=== PATIENT | female | born 1945 | race Caucasian/White ===

== ENCOUNTER 2024-02-08 12:25 | Emergency (ER) | payer MEDICARE, OTHER, SELFPAY ==
[2024-02-08 12:33] VITALS: BP 166/105
[2024-02-08 13:00] LABS: % Basophils 0.2 % (0-2); % Eosinophils 0.3 % (0-6); % Immature Granulocytes 0.3 % (0-0.5); % Lymphocytes 26.5 % (20.5-51.1); % Monocytes 4.6 % (1.7-9.3); % Neutrophils 68.1 % (42.2-75.2); Absolute Lymphocytes 2.3 10^3/uL (1.2-3.4); Absolute Monocytes 0.4 10^3/uL (0.1-0.6); Absolute Neutrophils 5.9 10^3/uL (1.4-6.5); Hematocrit 43.3 % (37.0-47.0); Hemoglobin 14.9 g/dL (12.0-16.0); Mean Corp Hgb Conc. 34.4 g/dL (33.0-37.0); Mean Corpuscular Hgb 32.5 pg (27.0-31.0); Mean Corpuscular Volume 94.5 fL (81.0-99.0); Mean Platelet Volume 12.1 fL (7.4-10.4); Nucleated Red Blood Cells % 0 %; Platelet Count 215 10^3/uL (130-400); Red Blood Cell Count 4.58 10^6/uL (4.20-5.40); Red Cell Dist. Width 12.7 % (11.5-14.5); White Blood Cell Count 8.6 10^3/uL (4.8-10.8)
[2024-02-08 13:19] LABS: ALT (SGPT) 19 U/L (0-35); AST (SGOT) 23 U/L (14-36); Albumin 4.8 g/dl (3.5-5.0); Alkaline Phosphatase 67 U/L (38-126); Blood Urea Nitrogen 17 mg/dl (7-17); Calcium 9.7 mg/dl (8.4-10.2); Carbon Dioxide 25 mmol/L (22-30); Chloride 104 mmol/L (98-107); Glucose 181 mg/dl (70-99); Potassium 3.7 mmol/L (3.5-5.1); Sodium 138 mmol/L (135-145); Total Bilirubin 0.5 mg/dl (0.2-1.3); Total Protein 8.3 g/dl (6.3-8.2); eGFR > 60.00
[2024-02-08 13:28] LABS: Troponin I < 0.012 ng/ml
--- NOTE | 2024-02-08 17:29 | ED.GENMED ---
History of Present Illness
General
Chief Complaint: Heart Rate Problem
Source: patient
Exam Limitations: none
Time Seen by Provider: 02/08/24 17:27
Nursing documentation reviewed up to this point in time: agreed with
Travel History
Have you had any contact with someone who has COVID-19?: No
Do you have any symptoms of coronavirus? Fever > 100 degrees, chills, cough, shortness of breath, sore throat, loss of taste or smell, muscle aches, or headache?: No
History of Present Illness
History of Present Illness:
79-year-old female with history of HTN, anxiety states she hasn't felt right for past few days, sinus congestion, headache after hitting right forehead on cabinet door 4 days ago. Around 11 a.m. checked her pulse ox and it was 98-99% RA but she had
'fast heart rate.' She denies feeling palpitations, denies CP, SOB, abd pain. Denies feeling weak or dizzy.
She admits she is extremely anxious, states she worries about everything states she has spoken to her PCP about her anxiety but has never taken anything for it.
Past History
Past History
ED Past Medical History: HTN and Psychiatric (Anxiety/panic disorder)
ED Past Surgical History: Cholecystectomy and Gynecological (Hysterectomy)
Social History
Tobacco: Non-smoker
Alcohol: Occasional
Drug: None
Personal:
Living: with family
Employment: Retired ( cardiology)
Family History
Family History: CAD
Review of Systems
Review of Systems
Allergies reviewed?: Yes
All Other Systems: ROS reviewed and negative except as documented in HPI and ROS
Constitutional: Reports fatigue; Denies fever
EENT: Reports other (Sinus stuffiness); Denies sore throat
Respiratory: Denies cough or trouble breathing
Cardiac: Denies chest pain or palpitations
ABD/GI: Denies abdominal pain, nausea, vomiting, diarrhea, bloody stools, black stools or anorexia
: Denies dysuria, frequency, flank pain or difficulty voiding
Musculoskeletal: Reports no symptoms; Denies edema
Skin: Reports no symptoms
Neurological: Reports headache; Denies dizzy, weakness or numbness
Psychiatric: Reports anxiety (Takes nothing for anxiety but asking if she could have something now for)
Phy Exam
Physical Exam
Physical Exam:
GENERAL: No acute distress. A&Ox3.
CONSTITUTIONAL: Afebrile.
EYES: Clear, conjunctivae normal
ENMT: moist mucus membranes, Pharynx nl
RESPIRATORY: Regular respirations, nonlabored, lungs clear.
CARDIOVASCULAR: Regular rate and rhythm, tachycardic 110-120 on monitor, no murmurs, no rubs.
GI: Soft, nontender, normal BS
MUSCULOSKELETAL: Moves with ease. Well perfused.
SKIN: Warm, dry, pink
PSYCH: Normal mood and affect, admits to feeling anxious. Well kept, interactive and appropriate.
NEUROLOGIC: Awake, alert and oriented. No focal neurological deficits
Course
Orders/Labs/Results
Orders:
Orders
02/08/24 12:27
Electrocardiogram (*1) Urgent
Reason for Study: Tachycardia
EKG- Treatment ONCE
02/08/24 12:43
Complete Blood Count/With Diff Urgent
Comprehensive Metabolic Panel Urgent
Troponin I Urgent
02/08/24 17:39
0.9% Sodium Chloride 1000 ml [Nss] 1,000 ml IV BOLUS
Abnormal Lab Results
02/08/24
12:43
MCH 32.5 H pg
(27.0-31.0)
MPV 12.1 H fL
(7.4-10.4)
Glucose 181 H mg/dl
(70-99)
Total Protein 8.3 H g/dl
(6.3-8.2)
02/08/24 12:43
02/08/24 12:43
Vital Signs
Initial and Last Documented VS:
Initial Vital Signs
Temp Pulse Resp BP Pulse Ox
98.4 F 123 18 166/105 98
02/08/24 12:33 02/08/24 12:33 02/08/24 12:33 02/08/24 12:33 02/08/24 12:33
Last Documented Vital Signs
Temp Pulse Resp BP Pulse Ox
98 F 87 16 128/68 99
02/08/24 19:10 02/08/24 19:10 02/08/24 19:10 02/08/24 19:10 02/08/24 19:10
MDM/Problems Addressed
MDM/Problems Addressed:
79-year-old female with history of HTN, anxiety states she hasn't felt right for past few days, sinus congestion, headache after hitting right forehead on cabinet door 4 days ago. Around 11 a.m. checked her pulse ox and it was 98-99% RA but she had
'fast heart rate.' She denies feeling palpitations, denies CP, SOB, abd pain. Denies feeling weak or dizzy.
She admits she is extremely anxious, states she worries about everything states she has spoken to her PCP about her anxiety but has never taken anything for it.
Initial EKG sinus tachycardia with a rate of 126
Admits to feeling extremely anxious, no one source, worries about everything.
02/08/2024 1900 PM
CBC CMP normal
Troponin
After 1 L of IV fluids, heart rate is in the 80s.
Discussed her anxiety with her, I will give her a low-dose of lorazepam to take as needed twice daily and she needs to follow-up with her PCP to discuss her anxiety and treatment options.
*Critical Care Note
Total Time (30-74mins, 75-104mins- exclusive of procedures): Not Applicable
ED Attending Note
-
Portions of this chart may have been created with voice recognition software.� Occasional wrong word or��sound alike� substitutions may have occurred due to the inherent limitations of voice recognition software.
Discharge Plan
Departure
Patient Disposition: Home (Routine Discharge)
Date of Disposition: 02/08/24
Time of Disposition: 19:09
Patient with high blood pressure during this ER visit?: No
Condition: Good
Discharge Problem:
Tachycardia, Anxiety
Instructions: Tips to Help You Worry Less, Anxiety, Adult ED
Prescriptions:
New
lorazepam 0.5 mg tablet
0.5 mg PO BID PRN (Reason: anxiety) Qty: 10 0RF
No Action
amlodipine-benazepril 5 MG/10 MG capsule
1 cap PO DAILY
ergocalciferol (vitamin D2) 400 UNIT tablet
400 unit PO DAILY
ascorbic acid (vitamin C) [Vitamin C] 500 MG tablet
500 mg PO DAILY
cod liver oil 118 ML oil
1 tsp PO DAILY
ascorbic acid-elderberry fruit 1 EACH tablet,chewable
1 ea PO DAILY
meclizine 25 mg tablet
25 mg PO QID PRN (Reason: dizziness, nausea) Qty: 30 0RF
amlodipine-benazepril [Lotrel] 5-10 mg Capsule
1 cap PO
Referrals:
Brooke Whelan MD [Family Provider] - Next open appointment
Activity Restrictions/Additional Instructions:
As we discussed, I sent a prescription to your pharmacy for lorazepam to take up to twice a day as needed for anxiety. Call your doctor tomorrow and make an appointment for sometime within the next week to discuss your anxiety.
Interventions
Interventions:
*Risk Screen - Suicide Last Done: 02/08/24 12:33
*General Assessment Last Done: 02/08/24 12:33
*Neglect/Abuse Screening Last Done: 02/08/24 12:33
ED- Fall Risk Assessment Last Done: 02/08/24 17:27
*ED COVID-19 Vaccine History Last Done: 02/08/24 12:33
*Nursing Disposition Last Done: 02/08/24 19:10
ED- Cardiac Assessment Last Done: 02/08/24 17:27
ED- Pulmonary Assessment Last Done: 02/08/24 17:27
Discharge Date and Time
Discharge Date/Time: 02/08/24 19:15
[2024-02-08] MEDS: NSS 1000 IV (17:52)
[2024-02-08 17:59] VITALS: BP 134/68
[2024-02-08 19:10] VITALS: BP 128/68
== END 2024-02-08 19:15 | disposition home or self-care (01) ==
LOC: EMR 12:25
PROVIDERS: Emergency Medicine; EMERGENCY PHYSICIAN Emergency Medicine; FAMILY PHYSICIAN Family Medicine
DX: R00.0 Tachycardia, unspecified (principal); F41.9 Anxiety disorder, unspecified; I10 Essential (primary) hypertension; F41.0 Panic disorder [episodic paroxysmal anxiety]; Z82.49 Family history of ischemic heart disease and other diseases of the circulatory system; Z90.49 Acquired absence of other specified parts of digestive tract; Z90.710 Acquired absence of both cervix and uterus
CPT/HCPCS: 99283; 96360; 80053; 84484; 85025; 93005

== ENCOUNTER → 2024-03-24 07:50 | Outpatient (REF) | payer MEDICARE, OTHER, SELFPAY ==
[2024-03-24 09:21] LABS: HDL Cholesterol 60 mg/dl; LDL Cholesterol, Calculated 124 mg/dl; Total Cholesterol 213 mg/dl (50-199); Triglyceride 149 mg/dl (10-149); Very Low Density Lipoprotein 29 mg/dl (0-30)
[2024-03-24 09:31] LABS: Glycohemoglobin (HgbA1c) 5.9 % (4.0-5.6)
== END ==
LOC: REG 07:50
PROVIDERS: ATTENDING PHYSICIAN Family Medicine
DX: E78.00 Pure hypercholesterolemia, unspecified (principal); R73.03 Prediabetes
CPT/HCPCS: 36415; 80061; 83036

== ENCOUNTER 2024-11-02 22:35 | Emergency (ER) | payer MEDICARE, OTHER, SELFPAY ==
[2024-11-02 23:07] LABS: % Basophils 0.3 % (0-2); % Eosinophils 0.7 % (0-6); % Immature Granulocytes 0.4 % (0-0.5); % Lymphocytes 33.2 % (20.5-51.1); % Monocytes 7.3 % (1.7-9.3); % Neutrophils 58.1 % (42.2-75.2); Absolute Eosinophils 0.1 10^3/uL (0-0.7); Absolute Monocytes 0.7 10^3/uL (0.1-0.6); Absolute Neutrophils 5.3 10^3/uL (1.4-6.5); Hematocrit 43.5 % (37.0-47.0); Hemoglobin 14.4 g/dL (12.0-16.0); Mean Corp Hgb Conc. 33.1 g/dL (33.0-37.0); Mean Corpuscular Hgb 32.4 pg (27.0-31.0); Mean Corpuscular Volume 97.8 fL (81.0-99.0); Mean Platelet Volume 11.9 fL (7.4-10.4); Nucleated Red Blood Cells % 0 %; Platelet Count 203 10^3/uL (130-400); Red Blood Cell Count 4.45 10^6/uL (4.20-5.40); Red Cell Dist. Width 12.6 % (11.5-14.5); White Blood Cell Count 9.1 10^3/uL (4.8-10.8)
[2024-11-02 23:32] LABS: Troponin I < 0.012 ng/ml
[2024-11-02 23:42] LABS: ALT (SGPT) 22 U/L (0-35); AST (SGOT) 23 U/L (14-36); Albumin 4.8 g/dl (3.5-5.0); Alkaline Phosphatase 55 U/L (38-126); Blood Urea Nitrogen 18 mg/dl (7-17); Calcium 9.6 mg/dl (8.4-10.2); Carbon Dioxide 29 mmol/L (22-30); Chloride 102 mmol/L (98-107); Glucose 122 mg/dl (70-99); Potassium 3.6 mmol/L (3.5-5.1); Sodium 142 mmol/L (135-145); Total Bilirubin 0.3 mg/dl (0.2-1.3); eGFR > 60.00
[2024-11-03 01:45] VITALS: BP 176/86
[2024-11-03 02:00] VITALS: BP 137/108
[2024-11-03 02:06] VITALS: BMI 28.2
[2024-11-03 02:30] VITALS: BP 148/87
[2024-11-03] MEDS: ATIVAN 0.5 MG PO (02:41)
[2024-11-03 03:00] VITALS: BP 160/91
--- NOTE | 2024-11-03 03:21 | ED.GENMED ---
History of Present Illness
General
Chief Complaint: Heart Rate Problem
Source: patient
Exam Limitations: none
Time Seen by Provider: 11/03/24 02:19
History of Present Illness
History of Present Illness:
This is a 79 year old female that comes in with c/o increased heart rate and anxiety. States that since she had a Concussion she feels that her anxiety has gotten worse. States that today all day she felt like her heart rate was elevated. States
that she checked and it was 102 at 12noon. States that she called the PCP and she then went into there office. Sates that she was given Lexapro and either Xanax or Ativan she is not sure which one. States that she was going to pick this up tomorrow.
States that she was trying to go to sleep and there was music blasting. States that she felt this made her more anxious and her heart rate went up to 117.States that her chest felt hot. States that she did have a headache earlier today. Denies any
fever, chills, chest pain, SOB, abd pain, nausea, vomiting, diarrhea, dizziness, urinary burning.
Past History
Past History
ED Past Medical History: HTN, Psychiatric (Anxiety/panic disorder) and Other (Dizziness, PNA, Concussion, Jag solomon, )
ED Past Surgical History: Cholecystectomy and Gynecological (Hysterectomy)
Social History
Tobacco: Non-smoker
Alcohol: Daily (wine 1 glass)
Drug: None
Personal:
Living: with family
Employment: Retired ( cardiology)
Family History
Family History: CAD
Review of Systems
Review of Systems
All Other Systems: ROS reviewed and negative except as documented in HPI and ROS
Constitutional: Reports no symptoms; Denies fever or chills
EENT: Reports no symptoms
Respiratory: Reports no symptoms; Denies cough or trouble breathing
Cardiac: Reports other (felt like her heart was racing); Denies chest pain
ABD/GI: Reports no symptoms; Denies abdominal pain, nausea, vomiting or diarrhea
: Reports no symptoms
Musculoskeletal: Reports no symptoms
Skin: Reports no symptoms
Neurological: Reports headache; Denies dizzy
Psychiatric: Reports anxiety
Phy Exam
General Physical Exam
General Presentation: no apparent distress
General age: appears stated age
General Skin: warm and dry
General Habitus: elderly
General Mental: alert and anxious
General Hydration: appears well hydrated
ENT Exam
ENT Exam: TM's normal, pharynx normal and neck supple
Eye Exam
Eye Exam: EOMI
Cardiovascular Exam
Cardiovascular Exam: regular rate/rhythm, no edema, no murmur and normal peripheral pulses
Pulmonary Exam
Pulmonary Exam: lungs clear, no respiratory distress, no rales, chest non tender, no crackles, no rhonchi, no wheezing and no cough
Gastrointestinal Exam
Gastrointestinal Exam: normal bowel sounds, non tender, soft, no organomegaly, no pulsatile mass and non distended
Musculoskeletal Exam
Musculoskeletal Exam: full ROM and no edema
Skin Exam
Skin Exam: normal color, warm/dry, no rash and no petechia
Psychiatric Exam
Psychiatric Exam: anxious
Course
Orders/Labs/Results
Orders:
Orders
11/02/24 22:44
EKG [Electrocardiogram (*1)] Urgent
Reason for Study: Tachycardia
EKG- Treatment ONCE
11/02/24 22:57
Complete Blood Count/With Diff Urgent
Comprehensive Metabolic Panel Urgent
Troponin I Urgent
11/03/24 02:34
Lorazepam [Ativan] 0.5 mg PO NOW STA
Abnormal Lab Results
11/02/24
22:57
MCH 32.4 H pg
(27.0-31.0)
MPV 11.9 H fL
(7.4-10.4)
Absolute Monos (auto) 0.7 H 10^3/uL
(0.1-0.6)
BUN 18 H mg/dl
(7-17)
Glucose 122 H mg/dl
(70-99)
11/02/24 22:57
11/02/24 22:57
Very slight Dehydration. Glucose nonfasting. Troponin < 0.012
Vital Signs
Initial and Last Documented VS:
Initial Vital Signs
Temp Pulse Resp Pulse Ox
98.1 F 113 18 96
11/02/24 22:41 11/02/24 22:41 11/02/24 22:41 11/02/24 22:41
Last Documented Vital Signs
Temp Pulse Resp BP Pulse Ox
98.1 F 91 10 160/91 99
11/02/24 22:41 11/03/24 03:00 11/03/24 03:00 11/03/24 03:00 11/03/24 02:45
MDM/Problems Addressed
Differential Diagnosis Includes:
Anxiety,
MDM/Problems Addressed:
This is a 79 year old female that comes in with c/o increased heart rate and anxiety. States that she felt like her heart rate was elevated today. States that she saw her PCP and was put on Lexapro and she called in prescription for either Ativan or
Xanax she doesn't remember which one. States that she was going to pick this up in the morning. States that she got really anxious tonight and her heart rate went up to 117.
Will check labs and ECG.
Explained to patient that her blood work shows very slightly Dehydration. Her Troponin is normal. Patient given Ativan and she states that she is feeling better and is tired. Will discharge patient home.
Chronic conditions affecting care: Psychiatric illness
Acute Exacerbation and/or Progression of Chronic Illness: Psychiatric illness
*Pulse Oximetry
Patient hypoxic: no
*EKG
Interpreted by ED Provider?: Yes
Heart Rate: 99
Rate: normal
Rhythm: sinus
[place]: normal axis
Interval: normal interval
QRS Pattern: normal QRS
Ischemia: no ischemia
*Continuous Churn Buttermaker Interpretation
Rate: normal
Heart Rate: 89
Rhythm: sinus
*Critical Care Note
Total Time (30-74mins, 75-104mins- exclusive of procedures): Not Applicable
ED Attending Note
-
Portions of this chart may have been created with voice recognition software.� Occasional wrong word or��sound alike� substitutions may have occurred due to the inherent limitations of voice recognition software.
Discharge Plan
Departure
Patient Disposition: Home (Routine Discharge)
Date of Disposition: 11/03/24
Time of Disposition: 03:30
Patient with high blood pressure during this ER visit?: Yes
Condition: Good
Covid-19: Not Applicable
Discharge Problem:
Anxiety
Instructions: Generalized Anxiety Disorder (DC), BLOOD PRESSURE
Prescriptions:
No Action
amlodipine-benazepril 5 MG/10 MG capsule
1 cap PO DAILY
ergocalciferol (vitamin D2) 400 UNIT tablet
400 unit PO DAILY
ascorbic acid (vitamin C) [Vitamin C] 500 MG tablet
500 mg PO DAILY
cod liver oil 118 ML oil
1 tsp PO DAILY
ascorbic acid-elderberry fruit 1 EACH tablet,chewable
1 ea PO DAILY
meclizine 25 mg tablet
25 mg PO QID PRN (Reason: dizziness, nausea) Qty: 30 0RF
amlodipine-benazepril [Lotrel] 5-10 mg Capsule
1 cap PO
lorazepam 0.5 mg tablet
0.5 mg PO BID PRN (Reason: anxiety) Qty: 10 0RF
Referrals:
Brooke Whelan MD [Family Provider] - Call in 1-3 days for appt
Activity Restrictions/Additional Instructions:
As discussed, your blood work shows very slight Dehydration. Your ECG and Troponin are normal. Please increase our water intake to 8-8oz glasses daily. Please get the prescriptions that were prescribed by your family doctor. Follow up with the
family doctor for recheck. IF YOU HAVE INCREASED OR CHANGING CHEST PAIN, OR YOU HAVE ANY OTHER CONCERNS PLEASE RETURN TO THE EMERGENCY ROOM .
Interventions
Interventions:
*Risk Screen - Suicide Last Done: 11/02/24 22:43
*General Assessment Last Done: 11/02/24 22:43
*Neglect/Abuse Screening Last Done: 11/02/24 22:43
*ED COVID-19 Vaccine History Last Done: 11/03/24 02:06
ED- Cardiac Assessment Last Done: 11/03/24 02:06
ED- Pulmonary Assessment Last Done: 11/03/24 02:06
Discharge Date and Time
Print Language: SWEDISH
[2024-11-03 03:30] VITALS: BP 144/77
== END 2024-11-03 03:52 | disposition home or self-care (01) ==
LOC: EMR 22:35
PROVIDERS: EMERGENCY PHYSICIAN Emergency Medicine; FAMILY PHYSICIAN Family Medicine
DX: F41.9 Anxiety disorder, unspecified (principal); E86.0 Dehydration; I10 Essential (primary) hypertension
CPT/HCPCS: 99284; 80053; 84484; 85025; 93005

== ENCOUNTER → 2024-11-17 09:10 | Outpatient (REF) | payer MEDICARE, OTHER, SELFPAY ==
[2024-11-17 10:30] LABS: % Basophils 0.4 % (0-2); % Immature Granulocytes 0.6 % (0-0.5); % Lymphocytes 39.6 % (20.5-51.1); % Monocytes 6.4 % (1.7-9.3); Absolute Eosinophils 0.1 10^3/uL (0-0.7); Absolute Lymphocytes 2.8 10^3/uL (1.2-3.4); Absolute Monocytes 0.5 10^3/uL (0.1-0.6); Absolute Neutrophils 3.7 10^3/uL (1.4-6.5); Hemoglobin 14.6 g/dL (12.0-16.0); Mean Corpuscular Volume 97.3 fL (81.0-99.0); Mean Platelet Volume 12.6 fL (7.4-10.4); Nucleated Red Blood Cells % 0 %; Platelet Count 211 10^3/uL (130-400); Red Blood Cell Count 4.42 10^6/uL (4.20-5.40); Red Cell Dist. Width 12.4 % (11.5-14.5); White Blood Cell Count 7.2 10^3/uL (4.8-10.8)
[2024-11-17 10:54] LABS: ALT (SGPT) 21 U/L (0-35); AST (SGOT) 22 U/L (14-36); Albumin 4.8 g/dl (3.5-5.0); Alkaline Phosphatase 53 U/L (38-126); Blood Urea Nitrogen 17 mg/dl (7-17); Calcium 9.7 mg/dl (8.4-10.2); Carbon Dioxide 28 mmol/L (22-30); Chloride 101 mmol/L (98-107); Glucose 114 mg/dl (70-99); Iron 82 ug/dl (37-170); Sodium 139 mmol/L (135-145); Total Bilirubin 0.3 mg/dl (0.2-1.3); Total Protein 8.1 g/dl (6.3-8.2); eGFR > 60.00
[2024-11-17 11:10] LABS: Free T4 1.29 ng/dl (0.78-2.19)
[2024-11-17 11:24] LABS: TSH 2.49 uIU/ml (0.47-4.68)
[2024-11-17 11:28] LABS: Ferritin 46.7 ng/ml (11.1-264.0)
[2024-11-17 13:22] LABS: Vitamin B12 397 pg/ml (239-931)
== END ==
LOC: REG 09:10
PROVIDERS: ATTENDING PHYSICIAN Nurse Practitioner Family
DX: R00.0 Tachycardia, unspecified (principal); R31.1 Benign essential microscopic hematuria; R73.03 Prediabetes; E78.00 Pure hypercholesterolemia, unspecified; I10 Essential (primary) hypertension; F41.9 Anxiety disorder, unspecified; J84.9 Interstitial pulmonary disease, unspecified
CPT/HCPCS: 36415; 80053; 82607; 82728; 83540; 84439; 84443; 85025

== ENCOUNTER 2024-11-22 21:48 | Emergency (ER) | payer MEDICARE, OTHER, SELFPAY ==
[2024-11-22 21:58] VITALS: BP 148/107
[2024-11-22 22:25] LABS: % Basophils 0.4 % (0-2); % Eosinophils 0.9 % (0-6); % Immature Granulocytes 0.4 % (0-0.5); % Neutrophils 52.3 % (42.2-75.2); Absolute Eosinophils 0.1 10^3/uL (0-0.7); Absolute Lymphocytes 3.3 10^3/uL (1.2-3.4); Absolute Monocytes 0.6 10^3/uL (0.1-0.6); Absolute Neutrophils 4.4 10^3/uL (1.4-6.5); Hematocrit 42.2 % (37.0-47.0); Hemoglobin 14.5 g/dL (12.0-16.0); Mean Corp Hgb Conc. 34.4 g/dL (33.0-37.0); Mean Corpuscular Hgb 32.9 pg (27.0-31.0); Mean Corpuscular Volume 95.7 fL (81.0-99.0); Mean Platelet Volume 11.9 fL (7.4-10.4); Nucleated Red Blood Cells % 0 %; Platelet Count 216 10^3/uL (130-400); Red Blood Cell Count 4.41 10^6/uL (4.20-5.40); Red Cell Dist. Width 12.2 % (11.5-14.5); White Blood Cell Count 8.5 10^3/uL (4.8-10.8)
[2024-11-22 22:40] LABS: ALT (SGPT) 24 U/L (0-35); AST (SGOT) 26 U/L (14-36); Alkaline Phosphatase 55 U/L (38-126); Blood Urea Nitrogen 16 mg/dl (7-17); Carbon Dioxide 28 mmol/L (22-30); Chloride 103 mmol/L (98-107); Glucose 127 mg/dl (70-99); Potassium 3.9 mmol/L (3.5-5.1); Sodium 139 mmol/L (135-145); Total Bilirubin 0.3 mg/dl (0.2-1.3); Total Protein 8.3 g/dl (6.3-8.2); eGFR > 60.00
[2024-11-22 22:51] LABS: NT-proBNP 33.4 pg/ml; Troponin I < 0.012 ng/ml
[2024-11-23 02:58] VITALS: BP 152/76
[2024-11-23 04:06] VITALS: BP 139/89
--- NOTE | 2024-11-23 04:27 | ED.GENMED ---
History of Present Illness
General
Chief Complaint: Heart Rate Problem
Source: patient
Time Seen by Provider: 11/23/24 04:17
History of Present Illness
History of Present Illness:
79-year-old female presents to the emergency room complaining of palpitations, burning in her chest, anxiety. Patient took a Ativan expecting it to help but in fact she began to feel worse. She denies any fever, chills, cough, nausea or vomiting.
Patient has a longstanding history of anxiety. Her family doctor has recommended she start Lexapro but she has not started it due to her concern about side effects.
Past History
Past History
ED Past Medical History: HTN, Psychiatric (Anxiety/panic disorder) and Other (Dizziness, PNA, Concussion, Jag solomon, )
ED Past Surgical History: Cholecystectomy and Gynecological (Hysterectomy)
Social History
Tobacco: Non-smoker
Alcohol: Daily (wine 1 glass)
Drug: None
Personal:
Living: with family
Employment: Retired ( cardiology)
Family History
Family History: CAD
Phy Exam
Physical Exam
Physical Exam:
General: Awake, Alert, Oriented X3. No acute distress.
Vitals: unremarkable
Head: Atraumatic
Eyes: Pupils equal, EOMI
Throat: Airway intact, no exudates
Neck: Trachea midline
Lungs: Clear and equal b/l
Heart: Regular rate, no murmurs
Abd: Soft, Nontender, No pulsatile mass
Neuro: Nonfocal
Skin: Warm, dry, no rash
Extremities: pulses equal b/l, no edema
Course
Orders/Labs/Results
Orders:
Orders
11/22/24 21:49
Electrocardiogram (*1) Urgent
Reason for Study: Tachycardia
EKG- Treatment ONCE
11/22/24 21:51
Cardiac Monitoring- Treatment ONCE
CR Chest - 2 Views Urgent
Comment:
Reason For Exam: respiratory distress
O2 Therapy [RESP] Urgent
Titrate/Wean O2 to maintain O2 sat greater than (%): 93
Special Instructions: TO MAINTAIN CONTINUOUS O2 SATS >/= 93%
Pulse Ox/cont/shift [RESP] Urgent
Quantity: 1
Special Instructions: continuous pulse ox
11/22/24 22:17
Complete Blood Count/With Diff Urgent
Comprehensive Metabolic Panel Urgent
NT-proBNP Urgent
Troponin I Urgent
Abnormal Lab Results
11/22/24
22:17
MCH 32.9 H pg
(27.0-31.0)
MPV 11.9 H fL
(7.4-10.4)
Glucose 127 H mg/dl
(70-99)
Total Protein 8.3 H g/dl
(6.3-8.2)
11/22/24 22:17
11/22/24 22:17
Vital Signs
Initial and Last Documented VS:
Initial Vital Signs
Temp Pulse Resp BP Pulse Ox
97.9 F 109 20 148/107 99
11/22/24 21:58 11/22/24 21:58 11/22/24 21:58 11/22/24 21:58 11/22/24 21:58
Last Documented Vital Signs
Temp Pulse Resp BP Pulse Ox
98.0 F 80 16 139/89 100
11/23/24 02:58 11/23/24 02:58 11/23/24 04:07 11/23/24 04:06 11/23/24 04:07
MDM/Problems Addressed
Differential Diagnosis Includes:
A-fib, SVT, PVCs, anxiety
MDM/Problems Addressed:
Patient presents with palpitations. EKG shows no dysrhythmia. Work appears unremarkable. Suspect symptoms are mostly related to anxiety. Patient stable for discharge home.
*Radiology
Radiology exam reviewed: preliminary read by ED provider (No acute abnormalities on my review of the patient's chest x-ray)
*Pulse Oximetry
Patient hypoxic: no
*EKG
Interpreted by ED Provider?: Yes
Interpretation: abnormal
Heart Rate: 118
Rate: tachycardiac
Rhythm: sinus tachycardia
[place]: normal axis
Interval: normal interval
QRS Pattern: normal QRS
Ischemia: no ischemia
*Fleet Director Interpretation
Rate: tachycardiac
Interpretation: abnormal
Rhythm: sinus tachycardia
*Critical Care Note
Total Time (30-74mins, 75-104mins- exclusive of procedures): Not Applicable
ED Attending Note
-
Portions of this chart may have been created with voice recognition software.� Occasional wrong word or��sound alike� substitutions may have occurred due to the inherent limitations of voice recognition software.
Discharge Plan
Departure
Patient Disposition: Home (Routine Discharge)
Date of Disposition: 11/23/24
Time of Disposition: 04:27
Patient with high blood pressure during this ER visit?: Yes
Condition: Good
Discharge Problem:
Palpitations, Anxiety
Instructions: Palpitations (DC), Chest Pain CBC Follow Up
Prescriptions:
No Action
amlodipine-benazepril 5 MG/10 MG capsule
1 cap PO DAILY
ergocalciferol (vitamin D2) 400 UNIT tablet
400 unit PO DAILY
ascorbic acid (vitamin C) [Vitamin C] 500 MG tablet
500 mg PO DAILY
cod liver oil 118 ML oil
1 tsp PO DAILY
ascorbic acid-elderberry fruit 1 EACH tablet,chewable
1 ea PO DAILY
meclizine 25 mg tablet
25 mg PO QID PRN (Reason: dizziness, nausea) Qty: 30 0RF
amlodipine-benazepril [Lotrel] 5-10 mg Capsule
1 cap PO
lorazepam 0.5 mg tablet
0.5 mg PO BID PRN (Reason: anxiety) Qty: 10 0RF
Interventions
Interventions:
*Risk Screen - Suicide Last Done: 11/22/24 21:58
*General Assessment Last Done: 11/22/24 21:58
*Neglect/Abuse Screening Last Done: 11/22/24 21:58
ED- Fall Risk Assessment Last Done: 11/22/24 21:58
*ED COVID-19 Vaccine History Last Done: 11/22/24 21:58
*Nursing Disposition Last Done: 11/23/24 04:40
ED- Cardiac Assessment Last Done: 11/23/24 04:40
ED- Pulmonary Assessment Last Done: 11/23/24 04:40
Discharge Date and Time
Discharge Date/Time: 11/23/24 04:40
Print Language: [place]THER[place] IRISH
== END 2024-11-23 04:40 | disposition home or self-care (01) ==
LOC: EMR 21:48
PROVIDERS: Emergency Medicine; EMERGENCY PHYSICIAN Emergency Medicine; FAMILY PHYSICIAN Family Medicine
DX: R00.2 Palpitations (principal); F41.9 Anxiety disorder, unspecified; I10 Essential (primary) hypertension; Z82.49 Family history of ischemic heart disease and other diseases of the circulatory system; Z90.49 Acquired absence of other specified parts of digestive tract; Z90.710 Acquired absence of both cervix and uterus
CPT/HCPCS: 99283; 71046; 80053; 83880; 84484; 85025; 93005

== ENCOUNTER → 2024-12-30 08:08 | Outpatient (REF) | payer MEDICARE, OTHER, SELFPAY | LOC: PAVMRI 08:08 | PROVIDERS: ATTENDING PHYSICIAN Orthopaedic Surgery; FAMILY PHYSICIAN Family Medicine | DX: M25.561 Pain in right knee (principal) | CPT/HCPCS: 73721 ==

== ENCOUNTER 2025-04-10 06:58 | Emergency (ER) | payer MEDICARE, OTHER, SELFPAY ==
[2025-04-10 07:06] VITALS: BP 169/102
--- NOTE | 2025-04-10 07:23 | ED.GENMED ---
History of Present Illness
General
Chief Complaint: Head Injury
Source: patient
Exam Limitations: none
Time Seen by Provider: 04/10/25 07:12
Nursing documentation reviewed up to this point in time: agreed with
History of Present Illness
History of Present Illness:
80-year-old female presents with a headache she struck her head yesterday getting out of a van-apparently stood up quickly and hit her head -when she was on vacation initially had a headache no loss of consciousness felt better woke up today with a
headache, she had a concussion 2 years ago states she never totally recovered, no blood thinners did have some alcohol yesterday no neck pain bloats to bother her eyes, ambulating without difficulty,
Past History
Past History
ED Past Medical History: HTN, Psychiatric (Anxiety/panic disorder) and Other (Dizziness, PNA, Concussion, Jag solomon, )
ED Past Surgical History: Cholecystectomy and Gynecological (Hysterectomy)
Social History
Tobacco: Non-smoker
Alcohol: Daily (wine 1 glass)
Drug: None
Personal:
Living: with family
Employment: Retired ( cardiology)
Family History
Family History: CAD
Review of Systems
Review of Systems
All Other Systems: Not applicable
Constitutional: Denies fever
Respiratory: Reports no symptoms
Cardiac: Reports no symptoms; Denies syncope
ABD/GI: Denies abdominal pain or nausea
: Reports no symptoms
Musculoskeletal: Denies neck pain
Neurological: Reports headache
Hematologic/Lymphatic: Reports no symptoms
Psychiatric: Reports anxiety
Phy Exam
Physical Exam
Physical Exam:
Physical Exam
General: no apparent distress, not acutely ill
Neck: No tongue bite no posterior neck
Heart: s1/s2 regular rate and rhythm, no murmur. equal radial pulses.
Lungs: no acute respiratory distress. clear bilaterally
Abdomen: Nontender
Neuro: alert and oriented. no focal neurological deficits
Skin: no rash
Psychiatric: well kept. interactive and cooperative
Extremities: no edema.
Course
Orders/Labs/Results
Orders:
Orders
04/10/25 07:[address]
CT Cervical Spine W/o Iv Contr Urgent
Comment:
Reason For Exam: trauma
CT Head W/o Iv Contrast Urgent
Comment:
Reason For Exam: trauma
Vital Signs
Initial and Last Documented VS:
Initial Vital Signs
Temp Pulse Resp BP Pulse Ox
98.3 F 91 16 169/102 99
04/10/25 07:06 04/10/25 07:06 04/10/25 07:06 04/10/25 07:06 04/10/25 07:06
Last Documented Vital Signs
Temp Pulse Resp BP Pulse Ox
98.5 F 84 20 162/88 97
04/10/25 07:43 04/10/25 07:43 04/10/25 07:43 04/10/25 07:43 04/10/25 07:43
MDM/Problems Addressed
Differential Diagnosis Includes:
Concussion intracerebral hemorrhage skull fracture C-spine injury
MDM/Problems Addressed:
Head trauma
Chronic conditions affecting care:
Prior head injury alcohol hypertension
Acute Exacerbation and/or Progression of Chronic Illness:
Prior head injury alcohol hypertension
*Radiology
Radiology exam reviewed: radiology read reviewed
*Pulse Oximetry
Patient hypoxic: no
*Critical Care Note
Total Time (30-74mins, 75-104mins- exclusive of procedures): Not Applicable
Update Note
Update Note:
GCS 15, was drinking some alcohol yesterday will check CT of the head cervical spine
ED Attending Note
-
Portions of this chart may have been created with voice recognition software.� Occasional wrong word or��sound alike� substitutions may have occurred due to the inherent limitations of voice recognition software.
Discharge Plan
Departure
Patient Disposition: Home (Routine Discharge)
Date of Disposition: 04/10/25
Time of Disposition: 08:03
Patient with high blood pressure during this ER visit?: Yes
Condition: Good
Discharge Problem:
Head injury
Instructions: Concussion, Adult (DC), Head Injury in Adults (DC), BLOOD PRESSURE
Prescriptions:
No Action
ergocalciferol (vitamin D2) 400 UNIT tablet
400 unit PO DAILY
cod liver oil 118 ML oil
1 tsp PO DAILY
ascorbic acid-elderberry fruit 1 EACH tablet,chewable
1 ea PO DAILY
amlodipine-benazepril [Lotrel] 5-10 mg Capsule
1 cap PO DAILY
Activity Restrictions/Additional Instructions:
Tylenol or ibuprofen for headache
Interventions
Interventions:
*Risk Screen - Suicide Last Done: 04/10/25 07:06
*General Assessment Last Done: 04/10/25 07:43
*Neglect/Abuse Screening Last Done: 04/10/25 07:06
*ED- Fall Risk Assessment Last Done: 04/10/25 07:43
*ED COVID-19 Vaccine History Last Done: 04/10/25 07:43
ED- Neurological Assessment Last Done: 04/10/25 07:43
ED-Skin Assessment Last Done: 04/10/25 07:43
Discharge Date and Time
Print Language: LIBY[place]
[2025-04-10 07:40] VITALS: BP 162/88
[2025-04-10 07:41] VITALS: BMI 23.3
[2025-04-10 07:43] VITALS: BP 162/88
[2025-04-10 08:00] VITALS: BP 162/77
== END 2025-04-10 08:21 | disposition home or self-care (01) ==
LOC: EMR 06:58
PROVIDERS: EMERGENCY PHYSICIAN Emergency Medicine; FAMILY PHYSICIAN Family Medicine
DX: S09.90XA Unspecified injury of head, initial encounter (principal); R51.9 Headache, unspecified; V48.4XXA Person boarding or alighting a car injured in noncollision transport accident, initial encounter; I10 Essential (primary) hypertension; F41.0 Panic disorder [episodic paroxysmal anxiety]; F41.9 Anxiety disorder, unspecified; Z87.01 Personal history of pneumonia (recurrent); Z87.820 Personal history of traumatic brain injury; Z90.49 Acquired absence of other specified parts of digestive tract
CPT/HCPCS: 99284; 70450; 72125

== ENCOUNTER → 2025-06-08 10:00 | Outpatient (REF) | payer MEDICARE, OTHER, SELFPAY ==
[2025-06-08 10:53] LABS: Hematocrit 43.5 % (37.0-47.0); Hemoglobin 14.6 g/dL (12.0-16.0); Mean Corp Hgb Conc. 33.6 g/dL (33.0-37.0); Mean Corpuscular Volume 95.8 fL (81.0-99.0); Nucleated Red Blood Cells % 0 %; Platelet Count 198 10^3/uL (130-400); Red Cell Dist. Width 12.6 % (11.5-14.5)
[2025-06-08 11:11] LABS: ALT (SGPT) 20 U/L (0-35); AST (SGOT) 20 U/L (14-36); Albumin 4.9 g/dl (3.5-5.0); Alkaline Phosphatase 55 U/L (38-126); Blood Urea Nitrogen 14 mg/dl (7-17); Calcium 9.7 mg/dl (8.4-10.2); Carbon Dioxide 25 mmol/L (22-30); Chloride 107 mmol/L (98-107); Glucose 105 mg/dl (70-99); HDL Cholesterol 60 mg/dl; LDL Cholesterol, Calculated 151 mg/dl; Potassium 4.1 mmol/L (3.5-5.1); Sodium 141 mmol/L (135-145); Total Protein 8.3 g/dl (6.3-8.2); Very Low Density Lipoprotein 26 mg/dl (0-30); eGFR > 60.00
== END ==
LOC: REG 10:00
PROVIDERS: ATTENDING PHYSICIAN Family Medicine
DX: R73.03 Prediabetes (principal); E78.00 Pure hypercholesterolemia, unspecified; I10 Essential (primary) hypertension; R53.83 Other fatigue
CPT/HCPCS: 36415; 80053; 80061; 84443; 85025

== ENCOUNTER 2025-11-12 09:54 | Emergency (ER) | payer MEDICARE, SELFPAY ==
[2025-11-12 09:59] VITALS: BP 173/99
--- NOTE | 2025-11-12 12:24 | ED.GENMED ---
History of Present Illness
General
Chief Complaint: Head Injury
Source: patient
Time Seen by Provider: 11/12/25 11:22
History of Present Illness
History of Present Illness:
80-year-old female with past medical history of hypertension presenting to the emergency department for evaluation after she bumped the top of her head on the car door frame last night, today has had persistent headache prompting her to come to the
ER. She notes she has had 2 concussions in the past with the last being diagnosed in March which is her main concern as well as the possibility for intracranial bleeding. Patient denies any use of anticoagulants, no LOC, no vomiting or visual
changes. No other injury sustained.
Past History
Past History
ED Past Medical History: HTN, Psychiatric (Anxiety/panic disorder) and Other (Dizziness, PNA, Concussion, Jag solomon, )
ED Past Surgical History: Cholecystectomy and Gynecological (Hysterectomy)
Social History
Tobacco: Non-smoker
Alcohol: Daily (wine 1 glass)
Drug: None
Personal:
Living: with family
Employment: Retired ( cardiology)
Family History
Family History: CAD
Review of Systems
Review of Systems
All Other Systems: ROS reviewed and negative except as documented in HPI and ROS
Phy Exam
Physical Exam
Physical Exam:
GENERAL: Alert , in no apparent distress
EYE: conjunctiva clear
Head: Normocephalic atraumatic
NECK: Supple, no midline ttp
ENT: mmm.
LUNGS: no acute respiratory distress
NEUROLOGICAL: Alert and oriented, ambulating with steady gait
SKIN: Warm and dry, skin intact.
MUSCULOSKELETAL: well perfused.
PSYCH: Normal and appropriate interaction.
Scores
Heart Failure Risk
Heart Failure Risk Score: Not Applicable
Heart Score for Chest Pain Patients
STEMI patient?: Not applicable
Withdrawal Assessment of Alcohol
Withdrawal Assessment Completed?: Not applicable
Course
Orders/Labs/Results
Orders:
Orders
11/12/25 10:03
CT Head W/o Iv Contrast Urgent
Comment:
Reason For Exam: head injury, right eye pain
Vital Signs
Initial and Last Documented VS:
Initial Vital Signs
Temp Pulse Resp BP Pulse Ox
98.4 F 108 18 173/99 96
11/12/25 09:59 11/12/25 09:59 11/12/25 09:59 11/12/25 09:59 11/12/25 09:59
Last Documented Vital Signs
Temp Pulse Resp BP Pulse Ox
98.4 F 112 16 160/91 96
11/12/25 09:59 11/12/25 12:38 11/12/25 12:38 11/12/25 12:38 11/12/25 12:25
MDM/Problems Addressed
Differential Diagnosis Includes:
Contusion
Concussion
ICH
MDM/Problems Addressed:
80-year-old female presenting to the ER for evaluation after she hit her head on the car door frame last night. Persistent headache today. Patient most concern for intracranial bleeding. Based off mechanism this would be very unlikely. CT of the
head ordered. Disposition pending.
*Radiology
Radiology exam reviewed: radiology read reviewed
*Pulse Oximetry
SaO2: 96
Oxygen Mode of Delivery: Room air
Patient hypoxic: no
*Critical Care Note
Total Time (30-74mins, 75-104mins- exclusive of procedures): Not Applicable
Patient Management
Escalation/DeEscalation of care consider admission/obs:
CT negative for any acute intracranial pathologies. Discussed concussion management. Patient to follow-up with primary care provider. Aware of return precautions to the ER.
ED Attending Note
-
Portions of this chart may have been created with voice recognition software.� Occasional wrong word or��sound alike� substitutions may have occurred due to the inherent limitations of voice recognition software.
Discharge Plan
Departure
Patient Disposition: Home (Routine Discharge)
Date of Disposition: 11/12/25
Time of Disposition: 12:24
Patient with high blood pressure during this ER visit?: Yes
Discharge Problem:
Head injury
Instructions: Head Injury in Adults (DC)
Prescriptions:
No Action
ergocalciferol (vitamin D2) 400 UNIT tablet
400 unit PO DAILY
cod liver oil 118 ML oil
1 tsp PO DAILY
ascorbic acid-elderberry fruit 1 EACH tablet,chewable
1 ea PO DAILY
amlodipine-benazepril [Lotrel] 5-10 mg Capsule
1 cap PO DAILY
Referrals:
Brooke Whelan MD [Family Provider, Family Practice]
Interventions
Interventions:
*General Assessment Last Done: 11/12/25 12:38
*Neglect/Abuse Screening Last Done: 11/12/25 12:40
*ED COVID-19 Vaccine History Last Done: 11/12/25 12:40
*ED Influenza Vaccine History Last Done: 11/12/25 12:40
[facility] Risk Assessment Tool Last Done: 11/12/25 12:38
*Risk Screen - Suicide (C-SSRS) Last Done: 11/12/25 09:59
*Nursing Disposition Last Done: 11/12/25 12:39
ED- Neurological Assessment Last Done: 11/12/25 12:38
ED-Skin Assessment Last Done: 11/12/25 12:38
Discharge Date and Time
Discharge Date/Time: 11/12/25 12:40
Print Language: RWANDAN
[2025-11-12 12:38] VITALS: BP 160/91
== END 2025-11-12 12:40 | disposition home or self-care (01) ==
LOC: EMR 09:54
PROVIDERS: EMERGENCY PHYSICIAN Emergency Medicine; FAMILY PHYSICIAN Family Medicine
DX: S09.90XA Unspecified injury of head, initial encounter (principal); W22.09XA Striking against other stationary object, initial encounter; Y92.810 Car as the place of occurrence of the external cause; I10 Essential (primary) hypertension; Z87.820 Personal history of traumatic brain injury; Z82.49 Family history of ischemic heart disease and other diseases of the circulatory system
CPT/HCPCS: 99284; 70450